=== PATIENT | male | born 1970 | race Caucasian/White ===

== ENCOUNTER 2019-05-22 15:24 | Emergency (ER) | payer BC ==
--- OUTSIDE RECORDS SUMMARY | 2019-05-22 15:39 | XMS REPORT | Continuity of Care Document ---
:1970 External Reference #:[id number] Author Name Ralph Hurtado D.O. 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 Onset: 10/08/2013 Osteoarthritis of knee Ralph Hurtado D.O. Onset: 08/04/2014 Social History Type Date Description Comments Sex Unknown Tobacco Use Start: Unknown Never Smoked Cigarettes Smoking Status Reviewed: 05/20/19 Never Smoked Cigarettes ETOH Use Occasionally consumes alcohol Tobacco Use Start: Unknown Non Smoker / No Tobacco Sun Exposure Uses sunscreen Seat Belt/Car Seat always uses car seat Allergies, Adverse Reactions, Alerts Active Allergies Reaction Severity Comments Date No Known Drug Allergy 03/08/2011 Medications Active Medications SIG Qnty Indications Ordering Provider Date Tobramycin-Dexamethas 1-3 drops right 5ml H00.012 Ralph Hurtado, 2018 one eye three times a D.O. 0.3-0.1% Suspension day x 7 days Aleve as needed - takes Unknown 11/20/2018 220mg Capsules at bedtime to help her sleep for backpain Budesonide 2 sprays both 17.2gm J31.0 Ralph Hurtado, 09/13/2015 32mcg/Act nostrils twice a D.O. Suspension day Ibuprofen 2 to 4 tab po 6 OTC Unknown 10/26/2013 200mg to 8 hours. Capsules maximum is 2400mg/day. ( 600 q6 or 800mg 8h) tylenol 1gm 6h. History Medications Amoxicillin/Clavulanate 1 tab by 20tabs J01.90 Silcoff, 02/11/2019 - Potassium mouth twice a Bimal Kinney 02/21/2019 875-125mg Tablets day x10 days Fluticasone Propionate Nasal 2 sprays per 9.900ml Sosacowaqar, 12/01/2018 - [place] nostril Bimal Kinney 05/19/2019 50mcg/Act Suspension before bed Glucosamine Sosamargarette, 12/01/2018 - 750mg Tablets Bimal Kinney 05/19/2019 Amoxicillin/Clavulanate 1 by mouth 20tabs Sopchak, 11/21/2018 - Potassium twice a day Marcin Rosas 12/01/2018 875-125mg Tablets Immunizations CPT Code Status Date Vaccine Lot # [id number] Given 05/20/2019 Influenza Virus Vaccine, Quadrivalent, Split, [id number] Preservative Free [id number] Given 08/04/2014 Influenza Virus Vaccine, Quadrivalent, Split, [id number] Preservative Free 10756 Given 09/01/2013 Hep B Immunization, Adult [id number] 00660 Given 09/01/2013 Flu, Split Virus 3Yrs [id number] [id number] Given 03/08/2011 Hep B Immunization, Adult [id number] [id number] Given 09/09/2008 Adacel or Boostrix, TDaP [id number] Refused 09/01/2013 Flu, Split Virus 3Yrs [id number] Refused 09/09/2008 Flu, Split Virus 3Yrs Vital Signs Date Vital Result Comment 05/22/2019 1:42pm BP Systolic 136 mmHg BP Diastolic 80 mmHg Body Temperature 99.4 F 05/20/2019 2:20pm BP Systolic 140 mmHg BP Diastolic 80 mmHg Weight 262.00 lb w/sneakers Results Test Date Facility Test Result H/L Range Note CBC Auto Diff 12/03/2018 [facility] White Blood 8.8 10^3/uL Normal 3.5-10.8 6 [phone] Count Red Blood Count 4.61 10^6/uL Normal 4.18-5.48 Hemoglobin 14.4 g/dL Normal 14.0-18.0 Hematocrit 41 % Normal 36-46 Mean Corpuscular Volume 89 fL Normal 80-94 Mean Corpuscular Hemoglobin 31 pg Normal 27-31 Mean Corpuscular HGB Conc 35 g/dL Normal 31-36 Red Cell Distribution Width 14 % Normal 10.5-15 Platelet Count 251 10^3/uL Normal 150-450 Mean Platelet Volume 7.5 fL Normal 7.4-10.4 Abs Neutrophils 4.4 10^3/uL Normal 1.5-7.7 Abs Lymphocytes 3.5 10^3/uL Normal 1.0-4.8 Abs Monocytes 0.5 10^3/uL Normal 0-0.8 Abs Eosinophils 0.3 10^3/uL Normal 0-0.6 Abs Basophils 0 10^3/uL Normal 0-0.2 Abs Nucleated RBC 0 10^3/uL Granulocyte % 49.9 % Lymphocyte % 39.6 % Monocyte % 6.2 % Eosinophil % 3.8 % Basophil % 0.5 % Nucleated Red Blood Cells % 0.2 Comp Metabolic Panel 12/03/2018 [facility] Sodium 139 mmol/L Normal 135-145 [phone] Potassium 4.1 mmol/L Normal 3.5-5.0 Chloride 107 mmol/L Normal 101-111 Co2 Carbon Dioxide 27 mmol/L Normal 22-32 Anion Gap 5 mmol/L Normal 2-11 Glucose 110 mg/dL High 70-100 Blood Urea Nitrogen 15 mg/dL Normal 6-24 Creatinine 0.83 mg/dL Normal 0.67-1.17 BUN/Creatinine Ratio 18.1 Normal 8-20 Calcium 9.3 mg/dL Normal 8.6-10.3 Total Protein 6.3 g/dL Low 6.4-8.9 Albumin 4.3 g/dL Normal 3.2-5.2 Globulin 2.0 g/dL Normal 2-4 Albumin/Globulin Ratio 2.2 Normal 1-3 Total Bilirubin 1.00 mg/dL Normal 0.2-1.0 Alkaline Phosphatase 70 U/L Normal 34-104 Alt 40 U/L Normal 7-52 Ast 22 U/L Normal 13-39 Egfr Non- 99.3 >60 Egfr 120.2 >60 2 Lipid Profile (Trig/Chol/HDL) 12/03/2018 [facility] Triglycerides 105 mg/dL 3 [phone] Cholesterol 154 mg/dL 4 HDL Cholesterol 28.4 mg/dL 5 LDL Cholesterol 105 mg/dL 6 Laboratory test 12/03/2018 [facility] TSH (Thyroid 3.61 mcIU/mL Normal 0.34-5.60 finding [phone] Stim Horm) 1 There is not testing for GC Chlam on the [facility] site for this lab order. SL 2 Because ethnic data is not always readily available, this report includes an eGFR for both -Americans and non- Americans. The National Kidney Disease Education Program (NKDEP) does not endorse the use of the MDRD equation for patients that are not between the ages of 18 and 70, are , have extremes of body size, muscle mass, or nutritional status, or are non- or non-. According to the National Kidney Foundation, irrespective of diagnosis, the stage of the disease is based on the level of kidney function: Stage Description GFR(mL/min/1.73 m(2)) 1 Kidney damage with normal or decreased GFR 90 2 Kidney damage with mild decrease in GFR 60-89 3 Moderate decrease in GFR 30-59 4 Severe decrease in GFR 15-29 5 Kidney failure <15 (or dialysis) 3 Desirable: <150 Borderline High: 150-199 High: 200-499 Very High: >500 4 Desirable: <200 Borderline High: 200-239 High: >239 5 Low: <40 Desirable: 40-60 High: >60 6 Desirable: <100 Near Optimal: 100-129 Borderline High: 130-159 High: 160-189 Very High: >189 Procedures Date Code Description Status 05/22/2019 79408 I & D Abscess Simple Completed 11/21/2018 90934 Electrocardiogram Complete Completed Medical Devices Description No Information Available Encounters Type Date Location Provider Dx Diagnosis Office Visit 05/22/2019 Main Office Ralph Hurtado, L03.818 Cellulitis of other 1:30p D.O. sites Office Visit 05/20/2019 Main Office Ralph Hurtado, H00.012 Hordeolum externum 2:15p D.O. right lower eyelid Z23 Encounter for immunization Office Visit 02/11/2019 11:40a Main Office Michelle Phillips, J01.90 Acute sinusitis, PA unspecified Office Visit 12/01/2018 8:00a Main Office Sue Bond, R03.0 Elevated P.A. blood-pressure reading, w/o diagnosis of htn Z00.01 Encounter for general adult medical exam w abnormal findings Z13.220 Encounter for screening for lipoid disorders Z11.3 Encntr screen for infections w sexl mode of transmiss R00.8 Other abnormalities of heart beat J31.0 Chronic rhinitis J34.2 Deviated nasal septum K13.70 Unspecified lesions of oral mucosa G47.9 Sleep disorder, unspecified Office Visit 11/21/2018 1:45p Main Office Ralph Hurtado D.O. R05 Cough R50.9 Fever, unspecified R00.8 Other abnormalities of heart beat J01.00 Acute maxillary sinusitis, unspecified R94.31 Abnormal electrocardiogram [ECG] [EKG] Assessments Date Code Description Provider 05/22/2019 L03.818 Cellulitis of other sites Ralph Hurtado D.O. 05/20/2019 H00.012 Hordeolum externum right lower eyelid Ralph Hurtado D.O. 05/20/2019 Z23 Encounter for immunization Ralph Hurtado D.O. 02/11/2019 J01.90 Acute sinusitis, unspecified Michelle Phillips PA 12/01/2018 R03.0 Elevated blood-pressure reading, without Sue [place], P.A. diagnosis of hypert 12/01/2018 Z00.01 Encounter for general adult medical Sue Bond P.AWilma examination with abnorma 12/01/2018 Z13.220 Encounter for screening for lipoid disorders Sue Bond, P.A. 12/01/2018 Z11.3 Encounter for screening for infections with a Sue Bond , P.A. predominantly 12/01/2018 R00.8 Other abnormalities of heart beat Sue Bond, P.A. 12/01/2018 J31.0 Chronic rhinitis Sue Bond, P.A. 12/01/2018 J34.2 Deviated nasal septum Sue Bond, P.A. 12/01/2018 K13.70 Unspecified lesions of oral mucosa Sue Bond, P.A. 12/01/2018 G47.9 Sleep disorder, unspecified Sue Nationle, P.A. 11/21/2018 R05 Cough Ralph Hurtado D.O. 11/21/2018 R50.9 Fever, unspecified Ralph Hurtado D.O. 11/21/2018 R00.8 Other abnormalities of heart beat Ralph Hurtado D.O. 11/21/2018 J01.00 Acute maxillary sinusitis, unspecified Ralph Hurtado D.O. 11/21/2018 R94.31 Abnormal electrocardiogram [ECG] [EKG] Ralph Hurtado D.O. Plan of Treatment 05/20/2019 - Ralph Hurtado D.O.H00.012 Hordeolum externum right lower eyelidNew Medication:Tobramycin-Dexamethasone 0.3-0.1 % - 1-3 drops right eye three times a day x 7 daysFollow up:as [id number] Encounter for immunization Functional Status Description No Information Available Mental Status Description No Information Available Referrals Refer to Reason for Referral Status Appt Date Fer Soni MD Multiple issues: likely sleep apnea w a STOP Bang Closed score of 4, deviated septum, chronic sinusitis and lesions on tongue. (nonsmoker and does not use chewing tobacco) Assume Management in Specialty [place] Director Pharmaceutical [address] [facility] / [address] [facility] [address] / [facility] [address] [phone] Fran Mayer, EKG rhythm strip showing irregularity of p wave Closed 00/ conduction variably. Consult and Treat [facility] [address] [place] [address] [phone]
--- OUTSIDE RECORDS SUMMARY | 2019-05-22 15:39 | XMS REPORT | Continuity of Care Document ---
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 Problems Active Problems Provider Date Chronic [...] Medications Amoxicillin/Clavulanate 1 tab by 20tabs J01.90 Sosacowaqar, 02/11/2019 - Potassium mouth twice a Bimal Kinney 02/21/2019 875-125mg Tablets day x10 days Fluticasone Propionate Nasal 2 sprays per 9.900ml Sosacowaqar, 12/01/2018 - [place] nostril Bimal Kinney 05/19/2019 50mcg/Act Suspension before bed Glucosamine Janice, 12/01/2018 - 750mg Tablets Bimal Kinney 05/19/2019 Amoxicillin/Clavulanate 1 by mouth 20tabs Sopchak, 11/21/2018 - Potassium twice a day Marcin Rosas 12/01/2018 875-125mg Tablets Immunizations CPT Code Status Date Vaccine Lot # [id number] Given 08/04/2014 Influenza Virus Vaccine, Quadrivalent, Split, [id number] Preservative Free 62962 Given 09/01/2013 Hep B Immunization, Adult [id number] 38358 Given 09/01/2013 Flu, Split Virus 3Yrs [id number] 44477 Given 03/08/2011 Hep B Immunization, Adult [id number] 12036 Given 09/09/2008 Adacel or Boostrix, TDaP [id number] Refused 09/01/2013 Flu, Split Virus 3Yrs 35420 Refused 09/09/2008 Flu, Split Virus 3Yrs Vital Signs Date Vital Result Comment 05/20/2019 2:20pm BP Systolic 140 mmHg BP Diastolic 80 mmHg Weight 262.00 lb w/sneakers 02/11/2019 12:04pm BP Systolic 132 mmHg BP Diastolic 84 mmHg Body Temperature 98.7 F Weight 254.00 lb Results Test Date Facility Test Result H/L Range Note CBC Auto Diff 12/03/2018 [facility] White Blood 8.8 10^3/uL Normal 3.5-10.8 5 [phone] Count Red Blood Count 4.61 10^6/uL Normal [...] Cells % 0.2 Comp Metabolic Panel 12/03/2018 [facility] Sodium 139 mmol/L Normal 135-145 [phone] Potassium 4.1 mmol/L Normal 3.5-5.0 Chloride 107 [...] 120.2 >60 2 Lipid Profile (Trig/Chol/HDL) 12/03/2018 [facility] Triglycerides 105 mg/dL 3 [phone] Cholesterol 154 mg/dL 4 HDL Cholesterol 28.4 mg/dL 5 LDL Cholesterol 105 mg/dL 6 Laboratory test 12/03/2018 [facility] TSH (Thyroid 3.61 mcIU/mL Normal 0.34-5.60 finding [phone] Stim Horm) 1 There is not testing for GC Chlam on the [facility] site for this lab order. SL 2 [...] High: >189 Procedures Date Code Description Status 11/21/2018 05913 Electrocardiogram Complete Completed Medical Devices Description No Information Available Encounters Type Date Location Provider Dx Diagnosis Office Visit 02/11/2019 Main Office Michelle Phillips PA J01.90 Acute sinusitis, 11:40a unspecified Office Visit 12/01/2018 Main Office Sue Bond, R03.0 Elevated 8:00a P.A. blood-pressure reading, w/o diagnosis of htn Z00.01 Encounter for general adult medical exam w abnormal findings Z13.220 Encounter for screening for lipoid disorders Z11.3 Encntr screen for infections w sexl mode of transmiss R00.8 Other abnormalities of heart beat J31.0 Chronic rhinitis J34.2 Deviated nasal septum K13.70 Unspecified lesions of oral mucosa G47.9 Sleep disorder, unspecified Office Visit 11/21/2018 1:45p Main Office Sopchak, Ralph, D.O. R05 Cough R50.9 Fever, unspecified R00.8 Other abnormalities of heart beat J01.00 Acute maxillary sinusitis, unspecified R94.31 Abnormal electrocardiogram [ECG] [EKG] Assessments Date Code Description Provider 05/20/2019 H00.012 Hordeolum externum right lower eyelid Ralph Hurtado D.O. 02/11/2019 J01.90 Acute sinusitis, unspecified Michelle Phillips PA 12/01/2018 R03.0 Elevated blood-pressure reading, without Sue Leighton, P.A. diagnosis of hypert 12/01/2018 Z00.01 Encounter for general adult medical Sue Leighton, P.A. examination with abnorma 12/01/2018 Z13.220 Encounter for screening for lipoid disorders Sue Leighton, P.A. 12/01/2018 Z11.3 Encounter for screening for infections with a Sue Leighton , P.A. predominantly 12/01/2018 R00.8 Other abnormalities of heart beat Suefausto Bond, P.A. 12/01/2018 J31.0 Chronic rhinitis Suefausto Nationle, P.A. 12/01/2018 J34.2 Deviated nasal septum Sue Leighton, P.A. 12/01/2018 K13.70 Unspecified lesions of oral mucosa Sue Leighton, P.A. 12/01/2018 G47.9 Sleep disorder, unspecified Sue Leighton, P.A. 11/21/2018 R05 Cough Ralph Hurtado D.O. [...] times a day x 7 daysFollow up:as needed Functional Status Description No Information Available Mental Status Description No Information Available Referrals Refer to Reason for Referral Status Appt Date Fer Soni MD Multiple issues: likely sleep apnea w a STOP Bang Closed score of 4, deviated septum, chronic sinusitis and lesions on tongue. (nonsmoker and does not use chewing tobacco) Assume Management in Specialty [place] Field Control Inspector [address] [facility] / [address] [place] [address] / [facility] [address] [phone] Fran Mayer, EKG rhythm strip showing irregularity of p wave Closed 00/ conduction variably. Consult and Treat [facility] [address] [place] [address] [phone]
--- NOTE | 2019-05-22 16:15 | ED ---
GI/ HPI - HPI Summary HPI Summary: 48 year old M presenting to [facility] from primary care provider's office complains of pain rated 6/10 in severity, erythema, and swelling in his testicles, and abscess on his testicles which started on Saturday05/19/19. Denies fever, burning with urination, dysuria. Patient states that on Saturday05/20/19, he applied a heated rag to the area, and the abscess burst open. Patient states that yesterday 05/21/19, he was fine, took a nap, and woke up and was unable to walk. Patient was seen by his primary care provider earlier today 05/22/19 who attempted to drain the abscess, and referred patient to the ED. Symptoms aggravated by nothing. Symptoms alleviated by nothing. Denies pertinent PMHx and FHx. - History of Current Complaint Chief Complaint: EDUrogenitalProblems Time Seen by Provider: 05/22/19 15:58 Stated Complaint: BOIL Hx Obtained From: Patient Onset/Duration: Started Days Ago - 05/19/19, Still Present Timing: Constant Current Severity: Moderate Pain Intensity: 6 Associated Signs and Symptoms: Positive: Negative - fever, burning with urination, dysuri Aggravating Factor(s): Nothing Alleviating Factor(s): Nothing - Allergy/Home Medications Allergies/Adverse Reactions: Allergies Allergy/AdvReac Type Severity Reaction Status Date / Time No Known Allergies Allergy Verified 05/22/19 15:29 Home Medications: Home Medications Tobramycin/Dexameth OPTH.SUSP* [Tobradex 0.3-0.1%*] 1 drop OPHTHALMIC Q4H [History Confirmed 05/22/19] PMH/Surg Hx/FS Hx/Imm Hx Endocrine/Hematology History: Denies: Hx Diabetes Cardiovascular History: Denies: Hx Hypertension Respiratory History: Denies: Hx Asthma, Hx Chronic Obstructive Pulmonary Disease (COPD) - Surgical History Surgery Procedure, Year, and Place: hand surgery bilateral - Immunization History Date of Influenza Vaccine: 05/20/2019 Immunizations Up to Date: Yes Infectious Disease History: No Infectious Disease History: Denies: Traveled Outside the [place] in Last 30 Days - Family History Known Family History: Positive: Other - father from cancer Family History: mother from aneurysm - Social History Alcohol Use: Occasionally Hx Substance Use: No Substance Use Type: Reports: None Hx Tobacco Use: No Smoking Status (MU): Never Smoked Tobacco Review of Systems Negative: Fever Positive: other - pain, erythema, and swelling in his testicles, and abscess on his testicles . Negative: burning, dysuria All Other Systems Reviewed And Are Negative: Yes Physical Exam - Summary Physical Exam Summary: Constitutional: Well-developed, Well-nourished, Alert. (-) Distressed Skin: Warm, Dry, erythema R scrotum HENT: Normocephalic; Atraumatic Eyes: Conjunctiva normal Neck: Musculoskeletal ROM normal neck. (-) JVD, (-) Stridor, (-) Nuchal rigidity Cardio: Rhythm regular, rate normal, Heart sounds normal; Intact distal pulses; Radial pulses are 2+ and symmetric. (-) Murmur Pulmonary/Chest wall: Effort normal. (-) Respiratory distress, (-) Wheezes, (-) Rales Abd: Soft, (-) tenderness, (-) Distension, (-) Guarding, (-) Rebound : diffuse erythema to the scrotum with induration of the right scrotum and inguinal canal, no perineal involvement Musculoskeletal: (-) Edema Lymph: (-) Cervical adenopathy Neuro: Alert, Oriented x3 Psych: Mood and affect Normal Triage Information Reviewed: Yes Vital Signs On Initial Exam: Initial Vitals Temp Pulse Resp BP Pulse Ox 98.3 F 86 20 140/93 97 05/22/19 15:26 05/22/19 15:26 05/22/19 15:26 05/22/19 15:26 05/22/19 15:26 Vital Signs Reviewed: Yes Diagnostics - Vital Signs Vital Signs Temp Pulse Resp BP Pulse Ox 05/22/19 15:26 98.3 F 86 20 140/93 97 - Laboratory Result Diagrams: 05/22/19 16:34 05/22/19 16:34 Lab Statement: Any lab studies that have been ordered have been reviewed, and results considered in the medical decision making process. - CT Pelvis CT Interpretation Completed By: Radiologist Summary of CT Findings: #. Scrotal edema most marked on the RIGHT. Suggestion of a 1 cm diameter loculated fluid collection within the posterior aspect of the RIGHT hemiscrotum reference image 69 of 85. No subcutaneous emphysema evident. Negative for significant hydroceles. ED physician has reviewed this report. Re-Evaluation - Re-Evaluation First Eval Re-Evaluation Time: 18:24 Comment: will put out consult call to [facility] since we don't have urology home economics expert today Second Eval Re-Evaluation Time: 18:26 Comment: patient informed ot CT findings and is aware that we put out consult call to [facility] GIGU Course/Dx - Course Course Of Treatment: 48-year-old male presents with scrotal erythema and pain. Physical exam with induration and erythema of the right scrotum, no perineal involvement. We'll check a CT scan to rule out deep space infection, give clindamycin and check labs. - Diagnoses Provider Diagnoses: Cellulitis of scrotum - Physician Notifications Time Discussed With Above Provider: 18:56 Instructed by Provider To: Other - Spoke with Transfer Center states they will call back. Spoke with Dr. Zuñiga, urology at [facility], 19:24, who states that we should admit to the hopsitalist and give a dose of Zosyn, and agrees to see patient in the morning at [facility]. Dr. Crowell, hospitliast at [facility], agrees to admit patient at 19:37. Discharge ED - Sign-Out/Discharge Documenting (check all that apply): Patient Departure - Transfer to [facility] Patient Received Moderate/Deep Sedation with Procedure: No - Discharge Plan Condition: Stable Disposition: TRANS HIGHER LVL OF CARE FAC Referrals: Ralph Hurtado DO [Primary Care Provider] - - Billing Disposition and Condition Condition: STABLE Disposition: Trans Higher Lvl of Care Fac - Attestation Statements Document Initiated by Scribe: Yes Documenting Scribe: Veronica Espitia Provider For Whom Courtney is Documenting (Include Credential): Forest Bland MD Scribe Attestation: I, Veronica Espitia, scribed for Forest Bland MD on 05/22/19 at 1939. Scribe Documentation Reviewed: Yes Provider Attestation: The documentation as recorded by the scribe, Veronica Espitia accurately reflects the service I personally performed and the decisions made by me, Forest Bland MD Status of Scribe Document: Viewed
[2019-05-22] MEDS ORDERED: Clindamycin 600 MG IVPREMIX(* 600 MG/50 ML SDV IV ONE (16:31)
[2019-05-22 16:45] LABS: ABS Basophils 0.1 10^3/ul (0-0.2); ABS Lymphocytes 1.2 10^3/ul (1.0-4.8); ABS Monocytes 1.1 10^3/ul (0-0.8); ABS Neutrophils 12.8 10^3/ul (1.5-7.7); Eosinophil % 0.3 %; Hematocrit 38 % (42-52); Hemoglobin 13.5 g/dL (14.0-18.0); Lymphocyte % 7.7 %; Mean Corpuscular HGB Conc 35 g/dL (31-36); Mean Corpuscular Hemoglobin 31 pg (27-31); Mean Corpuscular Volume 89 fL (80-94); Mean Platelet Volume 7.6 fL (7.4-10.4); Nucleated Red Blood Cells % 0.2; Platelet Count 190 10^3/uL (150-450); Red Blood Count 4.31 10^6 /uL (4.18-5.48); Red Cell Distribution Width 14 % (10-15); White Blood Count 15.1 10^3/uL (3.5-10.8)
[2019-05-22] MEDS ORDERED: Clindamycin 600 MG/D5W BAG(*) 600 MG/50 ML BAG IV ONE (17:00)
[2019-05-22 17:01] LABS: Albumin 3.9 g/dL (3.2-5.2); Albumin/Globulin Ratio 1.5 (1-3); BUN/Creatinine Ratio 17.3 (8-20); Calcium 8.6 mg/dL (8.6-10.3); EGFR African American 123.6 (>60); EGFR Non-African American 102.1 (>60); Globulin 2.6 g/dL (2-4); Potassium 3.7 mmol/L (3.5-5.0); Total Bilirubin 0.9 mg/dL (0.2-1.0); Total Protein 6.5 g/dL (6.4-8.9)
[2019-05-22] MEDS ORDERED: NS 0.9% 1000 ML** 1,000 ML IV ONE (17:04)
[2019-05-22] MEDS ORDERED: Iohexol 300* (CONTRAST) 10 ML SDV IV ONE (17:17)
[2019-05-22] MEDS ORDERED: Piperacillin/Tazobac ADVAN(*) 3.375 GM in NS 0.9% 100 ML* 100 ML IVPB ONE (19:25)
[2019-05-22] MEDS ORDERED: NS 0.9% 1000 ML** 1,000 ML IV SCH (20:45)
[2019-05-22 21:20] VITALS: BP 127/82
== END 2019-05-22 21:25 | disposition short-term general hospital (02) ==
LOC: ED 15:24
DX: N49.2 Inflammatory disorders of scrotum (principal); Z79.899 Other long term (current) drug therapy
CPT/HCPCS: 36415; 72193; 80053; 83605; 85025; 87040; 96374; 99283; J2543; Q9967